=== PATIENT | male | born 1940 | race African-American/Black ===

== ENCOUNTER 2016-11-08 14:14 | Inpatient (IN) ==
[2016-11-08] MEDS ORDERED: DOCUSATE SODIUM 100 MG CAPSULE PO PRN (14:20)
[2016-11-08] MEDS ORDERED: ACETAMINOPHEN 325 MG TABLET PO PRN (14:20)
[2016-11-08] MEDS ORDERED: ONDANSETRON 4 MG/2 ML VIAL IV PRN (14:20)
[2016-11-08 15:24] LABS: Basophils % 0.2 % (0.0-0.8); Eosinophils # 0.7 10*3/uL (0.0-0.87); Eosinophils % 6.9 % (0.00-10.9); Hematocrit 33.6 VOL% (42.0-52.0); Hemoglobin 11.6 GM/DL (14.0-18.0); Immature Granulocytes % 0.4 %; Immature Granulocytes Absolute 0.04 #; Lymphocytes # 2.5 10*3/uL (1.4-4.0); Mean Corpuscular HGB Conc 34.5 GM/DL (32-36); Mean Corpuscular Hemoglobin 26 PG (27-34); Mean Corpuscular Volume 74.5 FL (87-102); Mean Platelet Volume 11.1 FL (9.6-12.0); Monocytes # 1.3 10*3/uL (0.11-0.8); Monocytes % 13.9 % (1.7-12.7); NRBC # 0.11 10*3/uL; Neutrophils # 5.1 10*3/uL (1.4-7.4); Neutrophils % 52.6 % (38.7-73.9); Platelet Count 160 T/CUMM (130-400); Red Blood Count 4.51 MC/CUMM (3.8-5.5); Red Cell Distribution Width 18.4 % (9.3-17.3); White Blood Count 9.6 T/CUMM (4-12)
[2016-11-08 15:50] LABS: Albumin 3.8 G/DL (3.4-5.0); Bilirubin,Total 0.7 MG/DL (0.2-1.0); Calcium 8.9 MG/DL (8.5-10.1); Magnesium 2.5 MG/DL (1.8-2.4); Osmolality,Calculated 284.1 MOS/KG (273-304); Potassium 3.7 MMOL/L (3.5-5.1); Total Protein 7.4 G/DL (6.4-8.3)
[2016-11-08] MEDS: SODIUM CHLORIDE 0.9% 1,000 ML IV SCH (16:07)
--- NOTE | 2016-11-08 16:14 | Pulmonology Consult Note ---
Assessment and Plan (1) Pneumonia Status: Acute Assessment and plan: The patient comes in with some chest congestion and will be treated for pneumonia. Current Visit: Yes (2) History of CVA (cerebrovascular accident) Status: Acute Assessment and plan: The patient had a history of CVA and has been stable. Current Visit: Yes (3) Hypertension Status: Acute Assessment and plan: Patient has hypertension and we will continue present medicines. Current Visit: No (4) COPD (chronic obstructive pulmonary disease) Status: Acute Assessment and plan: Patient is a has some asthma or COPD and will continue with bronchodilator therapy and steroids. Current Visit: No History of Present Illness Chief complaint: Shortness of breath History of present illness: Mr. Davalos is a 76 year old black male that has a history of having hypertension along with pacemaker and previous seizures. He has a history of probably having asthma. Earlier in the year he had a cerebellar infarction. He was doing fairly well until recently when he started having some cough and congestion and is having some right-sided chest pain. He came in see Dr. Barker who thought he had pneumonia. He is admitted for further treatment. He has had problems with wheezing in the past. He is not taking any regular bronchodilators now. He has not smoked in over 40 years. Home Medications Medication Instructions Recorded Confirmed Type Omeprazole [Prilosec] 20 mg PO DAILY 03/15/15 03/30/16 History Acetaminophen Tab [Tylenol Tab] 650 mg PO Q6HR PRN 03/28/16 03/30/16 History Albuterol Sulfate [Proair HFA] 2 puff INH Q4H PRN 03/28/16 03/30/16 History Bisacodyl Tab [Dulcolax Tab] 5 mg PO DAILY PRN 03/28/16 03/30/16 History Carvedilol [Coreg] 25 mg PO BID 03/28/16 03/30/16 History Fluticasone Propionate [Flonase 2 spray BOTH NARES DAILY 03/28/16 03/30/16 History Allergy Relief] Folic Acid Tab 0.4 mg PO DAILY 03/28/16 03/30/16 History Lovastatin 40 mg PO BEDTIME 03/28/16 03/30/16 History Multivitamin [Multivitamins] 1 each PO DAILY 03/28/16 03/30/16 History Nitroglycerin [Nitroglycerin SL 0.4 mg SL Q5M PRN 03/28/16 03/30/16 History Tab] Polyvinyl Alcohol 1.4% Oph Ana 1 drop BOTH EYES QID PRN 03/28/16 03/30/16 History [Artificial Tears Oph Soln] Potassium Chloride 20 meq PO DAILY 03/28/16 03/30/16 History levETIRAcetam TAB [Keppra Tab] 500 mg PO Q12H 03/28/16 03/30/16 History Dipyridamole/Aspirin 200-25 1 capsule PO BID capsule 03/30/16 03/30/16 Rx [Aggrenox] Furosemide Tab [Lasix Tab] 40 mg PO DAILY tablet 03/30/16 03/30/16 Rx Gabapentin Cap/Tab [Neurontin 600 mg PO TID #90 tablet 03/30/16 03/30/16 Rx Cap/Tab] Oxybutynin [Ditropan] 5 mg PO DAILY tablet 03/30/16 03/30/16 Rx Pantoprazole Tab [Protonix Tab] 40 mg PO DAILY tablet 03/30/16 03/30/16 Rx Spironolactone [Aldactone] 25 mg PO BID tablet 03/30/16 03/30/16 Rx hydroCHLOROthiazide 25 mg PO DAILY tablet 03/30/16 03/30/16 Rx [Hydrochlorothiazide] Allergies Allergy/AdvReac Type Severity Reaction Status Date / Time No Known Allergies Allergy Verified 08/13/15 17:32 - Constitutional Constitutional: Present: chills, fatigue, fever(s), weakness. Absent: weight loss - EENT Eyes: Absent: loss of vision Ears: Absent: decreased hearing Nose, mouth and throat: Absent: dysphagia, headache(s), sinus pressure - Cardiovascular Cardiovascular: Present: chest pain at rest, dyspnea. Absent: palpitations, PND - Respiratory Respiratory: Present: cough, dyspnea, wheezing, change in phlegm color. Absent : hemoptysis, pain on inspiration - Gastrointestinal Gastrointestinal: Absent: abdominal pain, change in bowel habits, dysphagia, nausea, vomiting - Genitourinary Genitourinary: Absent: difficulty urinating, dysuria, hematuria, urinary frequency - Musculoskeletal Musculoskeletal: Present: arthralgias, muscle weakness - Neurological Neurological: Absent: abnormal speech, focal weakness - Psychiatric Psychiatric: Absent: anxiety Exam (Pulmonay) H&P - Constitutional Vitals: Period Temp Pulse Resp BP Sys/Muhammad Pulse Ox Last 24 Hr 98.2 F 77 18 129/84 92 General appearance: no acute distress (Patient looks comfortable lying in bed.) , over weight - Head Head exam: Present: normal inspection, normocephalic - Eye Eye exam: Present: EOMI. Absent: scleral icterus Pupils: Present: BENEDICTO - ENT ENT exam: Present: normal exam - Neck Neck exam: Absent: lymphadenopathy, thyromegaly - Respiratory Respiratory exam: Present: decreased breath sounds, rhonchi. Absent: accessory muscle use - Cardiovascular Cardiovascular exam: Present: regular rate and rhythm. Absent: gallop, systolic murmur - GI/Abdominal GI/Abdominal exam: Present: normal bowel sounds, soft. Absent: organomegaly, tenderness - Extremities Exam Extremities exam: Absent: calf tenderness, edema - Neurological Exam Neurological exam: Present: alert, oriented X3, CN II-XII intact - Psychiatric Psychiatric exam: Present: normal affect, normal mood - Skin Skin exam: Present: warm, dry Medical,Surgical,& Family Hx - Medical History Cardio: History of: Cardiac Dysrhythmia, Cerebrovascular Disease, CHF, Hypertension, Pacemaker, Cardiovascular Problems (A-Fib) Neurology: History of: Cerebrovascular Accident, Dementia, Seizures, Vertigo ( unable to maintain ballance) No history of: Brain Aneurysm, Cerebral Hemorrhage HEENT: History of: Ear Problem (DOUGLAS left ear), Eye Problem (s/p CVA), Dental Problems Respiratory: History of: Asthma, COPD, Obstructive Sleep Apnea Genitourinary: History of: Prostate Problems Gastrointestinal: History of: GERD No history of: GI Problems Musculoskeletal: History of: Back/Neck Problems No history of: Amputation Other: History of: Cancer (prostate CA) - Surgical History Cardiac Surgeries: Sugical HX of: Cardiac Catheterization Neurologic Surgeries: Patient denies: Brain Aneurysm, Cerebral Hemorrhage HEENT Surgeries: Surgical HX of: Tonsilectomy & Adenoidectomy Patient denies: Eye Surgery Abdominal Surgeries: Surgical HX of: Abdominal Surgery, Hernia Repair Reproductive Surgeries: Surgical HX of;: Prostate Surgery (PROSTATE CA) - Family History Family History: Reports;: Family Diabetes, Family Heart Disease, Family Hypertension, Family Stroke Denies;: Family Anesthesia Reaction, Family Cancer - Social History Smoking Status: Former smoker Frequency of Alcohol Use: None Type of Drug Use: None Results - Labs CBC & BMP: 11/08/16 15:17 11/08/16 15:17
[2016-11-08] MEDS: methylPREDNISolone SOD SUC 125 MG/2 ML VIAL IV SCH (16:29)
[2016-11-08 16:36] LABS: Apearance,Urine CLEAR (Clear); Bilirubin,Urine Negative (Negative); Blood, Urine Negative (Negative); Glucose,Urine (UA) Negative (Negative); Hyaline Casts,Urine 8 /LPF (0-3); Ketones,Urine Negative (Negative); Mucus,Urine Occasional /LPF (Occasional); Nitrite,Urine Negative (Negative); Protein,Urine Negative; RBC,Urine <1 /HPF (0-4); Squamous Epithelial Cell,Urine Occasional /HPF (0-10); Urine Color Yellow (Yellow); Urine Specific Gravity 1.006 (1.001-1.035); Urine Urobilinogen < 2.0 EU/DL (0.2-1.0); WBC,Urine <1 /HPF (0-6)
[2016-11-08] MEDS ORDERED: ENOXAPARIN 30 MG/0.3 ML SYRINGE SUBCUT SCH (17:00)
[2016-11-08] MEDS: cefTRIAXone 1,000 MG in SODIUM CHLORIDE 0.9% 100 ML IV SCH (17:13)
[2016-11-08] MEDS: LEVOFLOXACIN INJ 500 MG in PREMIX 1 EACH IV SCH (18:02)
--- NOTE | 2016-11-08 18:58 | XRay Report ---
History: Shortness of breath Date: 11/08/2016 Study: Chest x-ray PA and lateral Comparison exam: March 28, 2016 There is mild cardiomegaly. The mediastinal contours are stable. The pulmonary vasculature is upper normal. A left subclavian transvenous pacemaker/defibrillator device is generally intact. There is no pleural effusion. 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 There is some scarring in the lower lungs. There are scattered emphysematous changes. There is no definite acute infiltrate. Osseous structures are unchanged, with mild to moderate thoracic spondylosis. Impression: Chronic lung changes. No definite acute process. Stable cardiomegaly. Pacemaker device as before PROCEDURE INTERPRETED AT [facility] DEPARTMENT OF RADIOLOGY Final Report Signed by: Dr. Elisha Henry
[2016-11-08] MEDS: ALBUTEROL/IPRATROPIUM 3 ML NEB RESP TX SCH (19:40)
--- NOTE | 2016-11-08 21:29 | Family Practice History&Phys ---
Assessment and Plan (1) Pneumonia Status: Acute Assessment and plan: 11/08/2016: Treat with antibiotics tonight pulmonary consult appreciated Current Visit: Yes (2) COPD (chronic obstructive pulmonary disease) Status: Acute Assessment and plan: 11/08/2016: As above breathing treatments and steroids Current Visit: No (3) DVT prophylaxis Status: Acute Assessment and plan: 11/08/2016: Prophylaxis in place Current Visit: No History of Present Illness Chief complaint: Shortness of breath, right-sided chest pain History of present illness: Mr. Davalos is a 76 year old male Came to my clinic yesterday feeling some fatigue and with mild shortness of breath and some coughing with chest congestion. I did lab which was mostly normal but x-ray revealed what looked like a pneumonia in the right lower lobe and I treated him with antibiotics fairly aggressively. Told him if he has any further problems come back today. That he did and stated he felt worse. At this time a will put him in the hospital and get pulmonary to see him which is already been done. Appreciate their assistance. Will discuss further therapy to the patient based on findings. We will try to hydrate him up tonight and is better tomorrow or Sunday will consider discharge back home on antibiotics. Will monitor closely. Appreciate pulmonary assistance on this case Home Medications Medication Instructions Recorded Confirmed Type Omeprazole [Prilosec] 20 mg PO DAILY 03/15/15 11/08/16 History Acetaminophen Tab [Tylenol Tab] 650 mg PO Q6HR PRN 03/28/16 11/08/16 History Albuterol Sulfate [Proair HFA] 2 puff INH Q4H PRN 03/28/16 11/08/16 History Bisacodyl Tab [Dulcolax Tab] 5 mg PO DAILY PRN 03/28/16 11/08/16 History Carvedilol [Coreg] 25 mg PO BID 03/28/16 11/08/16 History Fluticasone Propionate [Flonase 2 spray BOTH NARES DAILY 03/28/16 11/08/16 History Allergy Relief] Folic Acid Tab 0.4 mg PO DAILY 03/28/16 11/08/16 History Lovastatin 40 mg PO BEDTIME 03/28/16 11/08/16 History Multivitamin [Multivitamins] 1 each PO DAILY 03/28/16 11/08/16 History Nitroglycerin [Nitroglycerin SL 0.4 mg SL Q5M PRN 03/28/16 11/08/16 History Tab] Polyvinyl Alcohol 1.4% Oph Ana 1 drop BOTH EYES QID PRN 03/28/16 11/08/16 History [Artificial Tears Oph Soln] Potassium Chloride 20 meq PO TID 03/28/16 11/08/16 History levETIRAcetam TAB [Keppra Tab] 500 mg PO Q12H 03/28/16 11/08/16 History Amitriptyline [Elavil] 10 mg PO DAILY 11/08/16 11/08/16 History Clopidogrel [Plavix] 75 mg PO DAILY 11/08/16 11/08/16 History Furosemide Tab [Lasix Tab] 40 mg PO SUMOWEFR@0800 11/08/16 11/08/16 History Gabapentin Cap/Tab [Neurontin 600 mg PO QID 11/08/16 11/08/16 History Cap/Tab] Lidocaine [Lidocaine 5% Patch] 1 patch TRANSDERM DAILY PRN 11/08/16 11/08/16 History Pantoprazole Tab [Protonix Tab] 20 mg PO DAILY 11/08/16 11/08/16 History Tamsulosin [Flomax] 0.4 mg PO DAILY 11/08/16 11/08/16 History Tramadol HCl [Tramadol Tab] 50 mg PO Q8HR PRN 11/08/16 11/08/16 History hydroCHLOROthiazide 50 mg PO DAILY 11/08/16 11/08/16 History [Hydrochlorothiazide] Allergies Allergy/AdvReac Type Severity Reaction Status Date / Time No Known Allergies Allergy Verified 08/13/15 17:32 12 point system: reviewed and no additional remarkable complaints except as stated (In the history and physical) Medical,Surgical,& Family Hx - Medical History Cardio: History of: Cardiac Dysrhythmia, Cerebrovascular Disease, CHF, Hypertension, Pacemaker, Cardiovascular Problems (A-Fib) Neurology: History of: Cerebrovascular Accident, Dementia, Seizures, Vertigo ( unable to maintain ballance) No history of: Brain Aneurysm, Cerebral Hemorrhage HEENT: History of: Ear Problem (SOL[place] left ear), Eye Problem (s/p CVA), Dental Problems Respiratory: History of: Asthma, COPD, Obstructive Sleep Apnea Genitourinary: History of: Prostate Problems Gastrointestinal: History of: GERD No history of: GI Problems Musculoskeletal: History of: Back/Neck Problems No history of: Amputation Other: History of: Cancer (prostate CA) - Surgical History Cardiac Surgeries: Sugical HX of: Cardiac Catheterization Neurologic Surgeries: Patient denies: Brain Aneurysm, Cerebral Hemorrhage HEENT Surgeries: Surgical HX of: Tonsilectomy & Adenoidectomy Patient denies: Eye Surgery Abdominal Surgeries: Surgical HX of: Abdominal Surgery, Hernia Repair Reproductive Surgeries: Surgical HX of;: Prostate Surgery (PROSTATE CA) - Family History Family History: Reports;: Family Diabetes, Family Heart Disease, Family Hypertension, Family Stroke Denies;: Family Anesthesia Reaction, Family Cancer - Social History Smoking Status: Former smoker Frequency of Alcohol Use: None Type of Drug Use: None Exam - Constitutional Vitals: Period Temp Pulse Resp BP Sys/Muhammad Pulse Ox Last 24 Hr 98.2 F-98.7 F 68-78 18-20 129-150/79-85 92-96 Exam: Generally well developed male he is alert he is oriented very cognitive for his age. He knows his medications very well although is hard of hearing. HEENT pupils are equally reactive neck is supple trachea midline Vascular rate is regular no gallop or rub Lungs does seem to be some rhonchi on the right lower lobe. The chest x-ray has to me what appears to be infiltrate although radiology states that this looks like right hemidiaphragm eventration. Will discuss with pulmonary tomorrow, does complain of some mild shortness of breath Abdomen soft nondistended nontender and 70 Extremities no clubbing cyanosis 1+ edema bilateral lower extremities Results - Labs CBC & BMP: 11/08/16 15:17 11/08/16 15:17
[2016-11-09] MEDS: ALBUTEROL/IPRATROPIUM 3 ML NEB RESP TX SCH ×4 (00:41→19:35)
[2016-11-09] MEDS: methylPREDNISolone SOD SUC 125 MG/2 ML VIAL IV SCH ×2 (04:21→20:25)
[2016-11-09] MEDS ORDERED: NITROGLYCERIN SL 0.4 MG TABLET SL PRN (06:49)
[2016-11-09] MEDS ORDERED: traMADol 50 MG TABLET PO PRN (06:49)
[2016-11-09] MEDS ORDERED: LIDOCAINE 5% PATCH TRANSDERM PRN (06:49)
[2016-11-09] MEDS ORDERED: BISACODYL 5 MG TABLET PO PRN (06:49)
[2016-11-09] MEDS ORDERED: POLYVINYL ALCOHOL 1.4% OPH SOLN 15 ML BOTTLE BOTH EYES PRN (07:30)
[2016-11-09] MEDS: AMITRIPTYLINE 10 MG TABLET PO SCH (08:22)
[2016-11-09] MEDS: MULTIVITAMIN (CENTRUM) TABLET PO SCH (08:22)
[2016-11-09] MEDS: CARVEDILOL 25 MG TABLET PO SCH ×2 (08:22→16:39)
[2016-11-09] MEDS: hydroCHLOROthiazide 25 MG TABLET PO SCH (08:23)
[2016-11-09] MEDS: FOLIC ACID 0.4 MG TABLET PO SCH (08:23)
[2016-11-09] MEDS: TAMSULOSIN 0.4 MG CAPSULE PO SCH (08:23)
[2016-11-09] MEDS: FLUTICASONE 50 MCG NASAL SPRAY 16 GM BOTTLE BOTH NARES SCH (08:23)
[2016-11-09] MEDS: FUROSEMIDE 40 MG TABLET PO SCH (08:24)
[2016-11-09] MEDS: POTASSIUM CHLORIDE 20 MEQ TABLET PO SCH ×2 (08:24→20:23)
[2016-11-09] MEDS: GABAPENTIN 600 MG TABLET PO SCH ×4 (08:24→20:22)
[2016-11-09] MEDS: PANTOPRAZOLE 40 MG TABLET PO SCH (08:25)
[2016-11-09] MEDS: CLOPIDOGREL 75 MG TABLET PO SCH (08:25)
[2016-11-09] MEDS: cefTRIAXone 1,000 MG in SODIUM CHLORIDE 0.9% 100 ML IV SCH (08:25)
[2016-11-09] MEDS: levETIRAcetam 500 MG TABLET PO SCH ×2 (08:35→20:23)
--- NOTE | 2016-11-09 08:39 | EKG Report ---
Stationary ECG Study [facility] Test Date: 11/08/2016 3:21:17 PM Pat Name: KALIN EDMONDS Department: Room: 216 Gender: M Fueler: : [id number] Requested by: Sanju Barker Order Number: [id number] Reading MD: LEONOR GALEAS Intervals [place] Rate: 81 P: 55 MT: 218 QRS: -10 QRSD: 89 T: 28 QT: 390 QTc: 427 Interpretive Statements SINUS RHYTHM WITH PROLONGED MT INTERVAL WITH FREQUENT VENTRICULAR PREMATURE COMPLEXES Electronically Signed On 11-09-16 10:34:28 CDT by LEONOR GALEAS [email or web address]
[2016-11-09] MEDS: FERROUS SULFATE 325 MG TABLET PO SCH (10:08)
--- NOTE | 2016-11-09 13:13 | Pulmonology Progress Note ---
Pulmonary - PN: Subj Interval history: The patient is a 76-year-old black man that has a history of having hypertension and a pacemaker. He probably has some mild asthma also. He has had a previous CVA. He came in with some chest congestion and coughing and some mild right-sided soreness. He has been started on antibiotics and is feeling a little better today. He is not having any fever. His chest x-ray shows eventration of the right hemidiaphragm and may have some slight increased markings in the right base. Overall he seems to be tolerating his therapy Exam (Progress Note) - Constitutional Vitals: Period Temp Pulse Resp BP Sys/Muhammad Pulse Ox Last 24 Hr 96.5 F-98.7 F 64-100 14-22 129-150/65-86 92-97 Exam: General appearance: no acute distress (Patient still looks like he is breathing okay at present.), over weight - Head Head exam: Present: normal inspection, normocephalic - Eye Eye exam: Present: EOMI. Absent: scleral icterus Pupils: Present: BENEDICTO - ENT ENT exam: Present: normal exam - Neck Neck exam: Absent: lymphadenopathy, thyromegaly - Respiratory Respiratory exam: Present: He has some minimal decreased breath sounds in the right base but is moving air okay with minimal rhonchi. - Cardiovascular Cardiovascular exam: Present: regular rate and rhythm. Absent: gallop, systolic murmur - GI/Abdominal GI/Abdominal exam: Present: normal bowel sounds, soft. Obese absent: organomegaly, tenderness - Extremities Exam Extremities exam: Absent: calf tenderness, edema - Neurological Exam Neurological exam: Present: alert, oriented X3, CN II-XII intact - Psychiatric Psychiatric exam: Present: normal affect, normal mood - Skin Skin exam: Present: warm, dry Results - Labs CBC & BMP: 11/08/16 15:17 11/08/16 15:17 - Diagnostic Findings Procedure: Chest x-ray: image reviewed by me, report reviewed by me (Chest x- ray shows eventration of the right hemidiaphragm but he does have some slight increased markings in the right lower lobe) Assessment and Plan (1) Pneumonia Status: Acute Assessment and plan: The patient comes in with some chest congestion and will be treated for pneumonia. He is tolerating his medicines okay. Current Visit: Yes (2) History of CVA (cerebrovascular accident) Status: Acute Assessment and plan: The patient had a history of CVA and has been stable. Current Visit: Yes (3) Hypertension Status: Acute Assessment and plan: Patient has hypertension and we will continue present medicines. He is hemodynamically stable Current Visit: No (4) COPD (chronic obstructive pulmonary disease) Status: Acute Assessment and plan: Patient is a has some asthma or COPD and will continue with bronchodilator therapy and steroids. Current Visit: No
[2016-11-09] MEDS: SODIUM CHLORIDE 0.9% 1,000 ML IV SCH (13:14)
--- NOTE | 2016-11-09 13:30 | Family Practice Progress Note ---
Family Practice - PN: Subj Interval history: Patient seen this morning. Still a little short of breath but seems somewhat better after being given steroids and breathing treatment. Appreciate pulmonary on this case and agree that this must be more and asthmatics type exacerbation than pneumonia. We are going to try to continue 1 more day of therapy and see if he can turn around by tomorrow hopefully discharge. He is alert he is able to sit up in bed. His swelling in his feet is down significantly. Exam (Progress Note) - Constitutional Vitals: Period Temp Pulse Resp BP Sys/Muhammad Pulse Ox Last 24 Hr 96.5 F-98.7 F 64-100 14-22 129-150/65-86 92-97 Exam: Generally well developed male he is alert he is oriented very cognitive for his age. He knows his medications very well although is hard of hearing. HEENT pupils are equally reactive neck is supple trachea midline Vascular rate is regular no gallop or rub Lungs does seem to be decrease in breath rattling. May have a little wheezing at this time. Discussed with pulmonary the right lung density and it is felt this is probably eventration as noted by radiology. Abdomen soft nondistended nontender and 70 Extremities no clubbing cyanosis 1+ edema bilateral lower extremities Results - Labs CBC & BMP: 11/08/16 15:17 11/08/16 15:17 Assessment and Plan (1) Pneumonia Status: Acute Assessment and plan: 11/08/2016: Treat with antibiotics tonight pulmonary consult appreciated Current Visit: Yes (2) COPD (chronic obstructive pulmonary disease) Status: Acute Assessment and plan: 11/08/2016: As above breathing treatments and steroids Current Visit: No (3) DVT prophylaxis Status: Acute Assessment and plan: 11/08/2016: Prophylaxis in place Current Visit: No
[2016-11-09] MEDS: LEVOFLOXACIN INJ 500 MG in PREMIX 1 EACH IV SCH (20:25)
[2016-11-09] MEDS ORDERED: LOVASTATIN 20 MG TABLET PO SCH (21:00)
[2016-11-10] MEDS: ALBUTEROL/IPRATROPIUM 3 ML NEB RESP TX SCH ×2 (00:20→07:12)
[2016-11-10 07:36] LABS: Calcium 9.5 MG/DL (8.5-10.1); Osmolality,Calculated 282.3 MOS/KG (273-304); Potassium 4.2 MMOL/L (3.5-5.1)
--- NOTE | 2016-11-10 08:42 | Pulmonology Progress Note ---
Pulmonary - PN: Subj Interval history: The patient is a 76-year-old black man that has a history of having hypertension and a pacemaker. He probably has some mild asthma also. He has had a previous CVA. He came in with some chest congestion and coughing and some mild right-sided soreness. He has been started on antibiotics and is feeling a little better today. He is not having any fever. His chest x-ray shows eventration of the right hemidiaphragm and may have some slight increased markings in the right base. He says he still has some sputum production but is better. He feels like his shortness of breath is better. He seems to be tolerating treatment fairly well. Exam (Progress Note) - Constitutional Vitals: Period Temp Pulse Resp BP Sys/Muhammad Pulse Ox Last 24 Hr 97.0 F-98.3 F 74-104 18-22 111-153/60-95 93-99 Exam: General appearance: no acute distress (Patient still looks like he is breathing okay at present. He looks comfortable today.), over weight - Head Head exam: Present: normal inspection, normocephalic - Eye Eye exam: Present: EOMI. Absent: scleral icterus Pupils: Present: BENEDICTO - ENT ENT exam: Present: normal exam - Neck Neck exam: Absent: lymphadenopathy, thyromegaly - Respiratory Respiratory exam: Present: He has some minimal decreased breath sounds in the right base but is moving air okay and his lungs sound better overall. - Cardiovascular Cardiovascular exam: Present: regular rate and rhythm. Absent: gallop, systolic murmur - GI/Abdominal GI/Abdominal exam: Present: normal bowel sounds, soft. Obese, absent: organomegaly, tenderness - Extremities Exam Extremities exam: Absent: calf tenderness, edema - Neurological Exam Neurological exam: Present: alert, oriented X3, CN II-XII intact - Psychiatric Psychiatric exam: Present: normal affect, normal mood - Skin Skin exam: Present: warm, dry Results - Labs CBC & BMP: 11/08/16 15:17 11/10/16 06:50 Assessment and Plan (1) Pneumonia Status: Acute Assessment and plan: The patient comes in with cough and congestion and probably has some asthmatic bronchitis with minimal pneumonia. He is feeling better overall. He can probably go home soon. Current Visit: Yes (2) History of CVA (cerebrovascular accident) Status: Acute Assessment and plan: The patient had a history of CVA and has been stable. He is getting around fairly well. Current Visit: Yes (3) Hypertension Status: Acute Assessment and plan: Patient has hypertension and we will continue present medicines. He is hemodynamically stable Current Visit: No (4) COPD (chronic obstructive pulmonary disease) Status: Acute Assessment and plan: Patient is a has some asthma or COPD and will continue with bronchodilator therapy and steroids. He is moving air fairly well now. Current Visit: No
[2016-11-10] MEDS: FOLIC ACID 0.4 MG TABLET PO SCH (08:53)
[2016-11-10] MEDS: MULTIVITAMIN (CENTRUM) TABLET PO SCH (08:53)
[2016-11-10] MEDS: GABAPENTIN 600 MG TABLET PO SCH (08:53)
[2016-11-10] MEDS: methylPREDNISolone SOD SUC 125 MG/2 ML VIAL IV SCH (08:53)
[2016-11-10] MEDS: hydroCHLOROthiazide 25 MG TABLET PO SCH (08:53)
[2016-11-10] MEDS: CLOPIDOGREL 75 MG TABLET PO SCH (08:54)
[2016-11-10] MEDS: FUROSEMIDE 40 MG TABLET PO SCH (08:54)
[2016-11-10] MEDS: FERROUS SULFATE 325 MG TABLET PO SCH (08:54)
[2016-11-10] MEDS: POTASSIUM CHLORIDE 20 MEQ TABLET PO SCH (08:55)
[2016-11-10] MEDS: CARVEDILOL 25 MG TABLET PO SCH (08:55)
[2016-11-10] MEDS: PANTOPRAZOLE 40 MG TABLET PO SCH (08:55)
[2016-11-10] MEDS: TAMSULOSIN 0.4 MG CAPSULE PO SCH (08:56)
[2016-11-10] MEDS: levETIRAcetam 500 MG TABLET PO SCH (08:56)
[2016-11-10] MEDS: AMITRIPTYLINE 10 MG TABLET PO SCH (08:56)
[2016-11-10] MEDS: FLUTICASONE 50 MCG NASAL SPRAY 16 GM BOTTLE BOTH NARES SCH (08:57)
--- NOTE | 2016-11-10 09:08 | Discharge Summary ---
Hospital Course - Hospital Course Hospital Course: Mr. Davalos is a 76 year old male Came to my clinic one day before admission feeling some fatigue and with mild shortness of breath and some coughing with chest congestion. I did lab which was mostly normal but x-ray revealed what looked like a pneumonia in the right lower lobe and I treated him with antibiotics fairly aggressively but he returned to clinic with worsening symptoms and was admitted and Pulmonary consults were obtained for further management. Appreciate pulmonary on this case and it was noted that he wasalso having an asthmatic exacerbation per Pulmonary cnsult also. His chest x-ray did eventration of the right hemidiaphragm and may have some slight increased markings in the right base. Due to this and comorbidities we elected to treat one more and he feels better today. He is eating and not as SOB. We will discharge and have return to my clinic within one week for follow up. 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 We did adjust his Lasix and Poatssium while hospitalized and will follo up on this on an outpatient basis. - Time spent with patient Time with patient DS: Less than 30 minutes Diagnosis - Discharge Diagnosis (1) Pneumonia Status: Acute (2) COPD (chronic obstructive pulmonary disease) Status: Acute (3) DVT prophylaxis Status: Acute Discharge Plan - Discharge Data Disposition: Disch To Home/Self Care Condition at Discharge: Stable Discharge Diet: heart healthy Activity: increase activity as tolerated Hygiene: no restrictions Weight Bearing at Discharge: weight bear as tolerated Driving: not until seen by doctor Contact your physician if you experience:: fever over 101, Shortness of breath - Discharge Medications New Levofloxacin Tab [Levaquin Tab] 500 mg PO DAILY #4 tablet methylPREDNISolone DOSEPAK [Medrol Dosepak] 4 mg PO DIRECTED #1 pack Potassium Chloride Cap/Tab [K Dur] 20 meq PO BID tablet Ferrous Sulfate Tab [Feosol Original Tab] 325 mg PO DAILY tablet Furosemide Tab [Lasix Tab] 40 mg PO DAILY tablet Continue Omeprazole [Prilosec] 20 mg PO DAILY Carvedilol [Coreg] 25 mg PO BID Lovastatin 40 mg PO BEDTIME Bisacodyl Tab [Dulcolax Tab] 5 mg PO DAILY PRN PRN Reason: Constipation Acetaminophen Tab [Tylenol Tab] 650 mg PO Q6HR PRN PRN Reason: Pain Fluticasone Propionate [Flonase Allergy Relief] 2 spray BOTH NARES DAILY Folic Acid Tab 0.4 mg PO DAILY Multivitamin [Multivitamins] 1 each PO DAILY Nitroglycerin [Nitroglycerin SL Tab] 0.4 mg SL Q5M PRN PRN Reason: Chest Pain Lidocaine [Lidocaine 5% Patch] 1 patch TRANSDERM DAILY PRN PRN Reason: Pain Gabapentin Cap/Tab [Neurontin Cap/Tab] 600 mg PO QID Tamsulosin [Flomax] 0.4 mg PO DAILY Amitriptyline [Elavil] 10 mg PO DAILY Tramadol HCl [Tramadol Tab] 50 mg PO Q8HR PRN PRN Reason: Pain levETIRAcetam TAB [Keppra Tab] 500 mg PO Q12H Albuterol Sulfate [Proair HFA] 2 puff INH Q4H PRN PRN Reason: Shortness Of Breath/Wheezing Polyvinyl Alcohol 1.4% Oph Ana [Artificial Tears Oph Soln] 1 drop BOTH EYES QID PRN PRN Reason: Dry Eyes Clopidogrel [Plavix] 75 mg PO DAILY hydroCHLOROthiazide [Hydrochlorothiazide] 50 mg PO DAILY Discontinued Potassium Chloride 20 meq PO TID Furosemide Tab [Lasix Tab] 40 mg PO SUMOWEFR@0800 Pantoprazole Tab [Protonix Tab] 20 mg PO DAILY - Follow Up or Referral Follow Up: Sanju Barker DO [Primary Care Provider] - 1 Week ([facility]) - Forms/Instructions Exam - Constitutional Vitals: Period Temp Pulse Resp BP Sys/Muhammad Pulse Ox Last 24 Hr 97.0 F-98.3 F 74-104 18-22 111-153/60-95 93-99 Discharge Results Labs on day of discharge: Labs from last 24 hours 11/10/16 06:50 Sodium 141 Potassium 4.2 Chloride 102 Carbon Dioxide 36 H Anion Gap 7.2 BUN 14 Creatinine 1.10 GFR Calculation 90 BUN/Creatinine Ratio 12.00 Glucose 123 H Calculated Osmolality 282.3 Calcium 9.5 - Imaging and Cardiology Cardiology Procedure: report reviewed by me DS: Provider Date of admission: 11/08/16 14:47 Primary care physician: Sanju Barker DO Attending physician on admission: Sanju Barker DO Consults: 11/08/16 14:20 Consult to Case Mgmt/Social Srvs [CONS] Routine Reason for Case Mgmt/Social Srvs: Discharge Planning 11/08/16 14:24 Consult to Physician [CONS] Routine Comment: RLL Pneumonia Consulting Provider: Suraj Lynn Person Notified: HUNG Date Notified: 11/08/16 Discharging clinician: Sanju Barker DO
[2016-11-10] MEDS: cefTRIAXone 1,000 MG in SODIUM CHLORIDE 0.9% 100 ML IV SCH (09:28)
[2016-11-10 14:12] VITALS: BP 121/76
== END 2016-11-10 13:55 | disposition home or self-care (01) | DRG 190 ==
LOC: N.2E 14:47
PROVIDERS: ADMIT Family Medicine; ATTEND Family Medicine

== ENCOUNTER 2017-03-29 14:30 | Inpatient (IN) ==
[2017-03-29] MEDS ORDERED: ONDANSETRON 4 MG/2 ML VIAL IV PRN (15:09)
[2017-03-29] MEDS ORDERED: ACETAMINOPHEN 325 MG TABLET PO PRN (15:09)
[2017-03-29] MEDS ORDERED: DOCUSATE SODIUM 100 MG CAPSULE PO PRN (15:09)
[2017-03-29] MEDS ORDERED: SODIUM CHLORIDE 0.9% 1,000 ML IV SCH (15:30)
[2017-03-29] MEDS ORDERED: INFLUENZA VIRUS VACCINE 0.5 ML SYRINGE IM ONE (17:00)
[2017-03-29] MEDS ORDERED: PNEUMOCOCCAL VACCINE (13 VALENT) 0.5 ML SYRINGE IM ONE (17:00)
[2017-03-29 17:57] LABS: Basophils % 0.1 % (0.0-0.8); Eosinophils # 0.2 10*3/uL (0.0-0.87); Eosinophils % 1.8 % (0.00-10.9); Hematocrit 31.6 VOL% (42.0-52.0); Hemoglobin 11.2 GM/DL (14.0-18.0); Immature Granulocytes % 0.3 %; Immature Granulocytes Absolute 0.03 #; Lymphocytes # 2.4 10*3/uL (1.4-4.0); Lymphocytes % 25.4 % (21.2-54.2); Mean Corpuscular HGB Conc 35.4 GM/DL (32-36); Mean Corpuscular Hemoglobin 29 PG (27-34); Monocytes # 1.2 10*3/uL (0.11-0.8); Monocytes % 13.2 % (1.7-12.7); NRBC # 0.02 10*3/uL; Neutrophils # 5.5 10*3/uL (1.4-7.4); Neutrophils % 59.2 % (38.7-73.9); Platelet Count 131 T/CUMM (130-400); Red Cell Distribution Width 16.6 % (9.3-17.3); White Blood Count 9.2 T/CUMM (4-12)
[2017-03-29 18:20] LABS: INR 1.1; PT Patient Result 11.5 SECS
[2017-03-29 18:31] LABS: Albumin 3.7 G/DL (3.4-5.0); Calcium 8.6 MG/DL (8.5-10.1); Osmolality,Calculated 290.8 MOS/KG (273-304); Total Protein 6.9 G/DL (6.4-8.3)
[2017-03-30] MEDS: SODIUM CHLOR 0.45% KCL 20 MEQ 20 MEQ/1,000 ML BAG IV SCH ×2 (05:49→21:48)
[2017-03-30 06:18] LABS: Basophils % 0.1 % (0.0-0.8); Eosinophils # 0.4 10*3/uL (0.0-0.87); Eosinophils % 4.9 % (0.00-10.9); Hematocrit 29.3 VOL% (42.0-52.0); Hemoglobin 10.6 GM/DL (14.0-18.0); Immature Granulocytes % 0.3 %; Immature Granulocytes Absolute 0.02 #; Lymphocytes # 2.8 10*3/uL (1.4-4.0); Lymphocytes % 36.9 % (21.2-54.2); Mean Corpuscular HGB Conc 36.2 GM/DL (32-36); Mean Corpuscular Hemoglobin 29 PG (27-34); Mean Corpuscular Volume 79.4 FL (87-102); Mean Platelet Volume 12.4 FL (9.6-12.0); Monocytes # 1.3 10*3/uL (0.11-0.8); Monocytes % 16.9 % (1.7-12.7); NRBC # 0.03 10*3/uL; Neutrophils # 3.1 10*3/uL (1.4-7.4); Neutrophils % 40.9 % (38.7-73.9); Platelet Count 124 T/CUMM (130-400); Red Blood Count 3.69 MC/CUMM (3.8-5.5); Red Cell Distribution Width 16.3 % (9.3-17.3); White Blood Count 7.5 T/CUMM (4-12)
[2017-03-30 07:06] LABS: Lymphocytes 25 % (20-55); Microcytosis 1+; Segmented Neutrophils 60 % (50-85); Target Cells 2+; Total Cells Counted 100
[2017-03-30 07:07] LABS: Hypochromasia 1+; Pappenheimer Bodies 2+
[2017-03-30 07:08] LABS: Platelet Estimate Decreased
[2017-03-30] MEDS: PANTOPRAZOLE 40 MG TABLET PO SCH (11:20)
[2017-03-30 11:49] LABS: Calcium 8.4 MG/DL (8.5-10.1); Osmolality,Calculated 288.7 MOS/KG (273-304); Potassium 2.8 MMOL/L (3.5-5.1)
[2017-03-31] MEDS: PANTOPRAZOLE 40 MG TABLET PO SCH (10:56)
[2017-03-31] MEDS: SODIUM CHLOR 0.45% KCL 20 MEQ 20 MEQ/1,000 ML BAG IV SCH (12:54)
[2017-03-31 16:25] LABS: Calcium 8.5 MG/DL (8.5-10.1); Osmolality,Calculated 285.7 MOS/KG (273-304); Potassium 2.9 MMOL/L (3.5-5.1)
[2017-03-31] MEDS: POTASSIUM CHLORIDE 20 MEQ TABLET PO PRN ×2 (20:04→21:57)
[2017-04-01] MEDS: POTASSIUM CHLORIDE 20 MEQ TABLET PO PRN ×2 (02:09)
[2017-04-01] MEDS: SODIUM CHLOR 0.45% KCL 20 MEQ 20 MEQ/1,000 ML BAG IV SCH ×3 (02:28→21:01)
[2017-04-01 08:34] LABS: Basophils % 0.1 % (0.0-0.8); Eosinophils # 0.3 10*3/uL (0.0-0.87); Eosinophils % 3.4 % (0.00-10.9); Hematocrit 31.9 VOL% (42.0-52.0); Hemoglobin 11.2 GM/DL (14.0-18.0); Immature Granulocytes % 0.3 %; Immature Granulocytes Absolute 0.02 #; Lymphocytes # 2.8 10*3/uL (1.4-4.0); Lymphocytes % 36.7 % (21.2-54.2); Mean Corpuscular HGB Conc 35.1 GM/DL (32-36); Mean Corpuscular Hemoglobin 29 PG (27-34); Mean Corpuscular Volume 81.2 FL (87-102); Monocytes # 1.2 10*3/uL (0.11-0.8); Monocytes % 15.2 % (1.7-12.7); NRBC # 0.05 10*3/uL; Neutrophils # 3.4 10*3/uL (1.4-7.4); Neutrophils % 44.3 % (38.7-73.9); Platelet Count 128 T/CUMM (130-400); Red Blood Count 3.93 MC/CUMM (3.8-5.5); Red Cell Distribution Width 16.4 % (9.3-17.3); White Blood Count 7.7 T/CUMM (4-12)
[2017-04-01 09:09] LABS: Albumin 3.7 G/DL (3.4-5.0); Bilirubin,Total 1.7 MG/DL (0.2-1.0); Calcium 8.8 MG/DL (8.5-10.1); Potassium 3.5 MMOL/L (3.5-5.1); Total Protein 6.8 G/DL (6.4-8.3)
[2017-04-01 09:30] LABS: Giant Platelets Few; Hypochromasia Slight; Microcytosis Slight; Platelet Estimate Normal; Target Cells Few
[2017-04-01] MEDS: PANTOPRAZOLE 40 MG TABLET PO SCH (10:10)
[2017-04-02] MEDS ORDERED: LIDOCAINE 100 MG/5 ML SYRINGE ONE (09:00)
[2017-04-02] MEDS ORDERED: PROPOFOL 200 MG/20 ML VIAL IV ONE (09:00)
[2017-04-02] MEDS: PANTOPRAZOLE 40 MG TABLET PO SCH (11:00)
[2017-04-02] MEDS: SODIUM CHLOR 0.45% KCL 20 MEQ 20 MEQ/1,000 ML BAG IV SCH (11:00)
[2017-04-02] MEDS ORDERED: cefTRIAXone 1,000 MG in SYRINGE 1 EACH IV ONE (15:44)
[2017-04-02 16:00] VITALS: BP 145/94
[2017-04-02 16:31] LABS: Apearance,Urine CLOUDY (Clear); Bacteria,Urine Few /HPF (Few); Bilirubin,Urine Negative (Negative); Blood, Urine Small mg/dL (Negative); Glucose,Urine (UA) Negative (Negative); Ketones,Urine 20 mg/dL (Negative); Nitrite,Urine Positive (Negative); Protein,Urine Negative; RBC,Urine 2 /HPF (0-4); Squamous Epithelial Cell,Urine Occasional /HPF (0-10); Urine Color Yellow (Yellow); Urine Specific Gravity 1.008 (1.001-1.035); WBC,Urine 1 /HPF (0-6)
== END 2017-04-02 17:50 | disposition home health service (06) | DRG 379 ==
LOC: N.2E 16:40
PROVIDERS: ADMIT Family Medicine; ATTEND Family Medicine

== ENCOUNTER 2017-09-08 15:49 | Inpatient (IN) ==
[2017-09-12 12:02] VITALS: BP 118/71
== END 2017-09-12 14:23 | disposition home health service (06) | DRG 391 ==
LOC: N.TELEN 18:15
PROVIDERS: ADMIT Family Medicine; ATTEND Family Medicine